=== PATIENT | female | born 1960 | race African-American/Black ===

== ENCOUNTER 2020-05-03 18:22 | Emergency (ER) | payer OTHER ==
[2020-05-03 18:26] VITALS: BP 133/61; PULSE 69; TEMP 97.1; BMI 33.2
[2020-05-03] MEDS ORDERED: DIPHTH,PERTUSS(ACELL),TET 0.5 ML DISP.SYRIN IM ONE ×2 (18:41→18:43)
[2020-05-03] MEDS ORDERED: IBUPROFEN 600 MG TABLET (FP) PO ONE ×2 (18:41→18:43)
--- NOTE | 2020-05-03 18:47 | PDOC ---
History of Present Illness - General Chief Complaint: Wound Stated Complaint: FINGER LACERATION Time Seen by Provider: 05/03/20 18:28 History Source: Patient Exam Limitations: No Limitations - History of Present Illness Initial Comments: 05/03/20 18:42 HISTORY OF PRESENT ILLNESS: 59-year-old woman who presents emergency department for evaluation of pain to left thumb status post laceration which occurred 4 days ago. Patient reports she was opening a can of corn beef when she cut herself on the exposed sharp edges of the lid. Patient has been applying Betadine and hydrogen peroxide to her wound since injury happened and is now concerned that she still has pain 4 days after the initial injury despite not taking any medication. Patient is unsure of her last tetanus shot. No recent travel or sick contacts. PAST MEDICAL HISTORY: Denies past medical history SURGICAL HISTORY: Denies ALLERGIES: No known drug allergies REVIEW OF SYSTEMS General/Constitutional: Denies fever or chills. Denies weakness, weight change. HEENT: Denies change in vision. Denies ear pain or discharge. Denies sore throat. Cardiovascular: Denies chest pain or shortness of breath. Respiratory: Denies cough, wheezing, or hemoptysis. Gastrointestinal: Denies nausea, vomiting, diarrhea or constipation. Denies rectal bleeding. Genitourinary: Denies dysuria, frequency, or change in urination. Musculoskeletal: Denies joint or muscle swelling or pain. Denies neck or back pain. Skin and breasts: See HPI Neurologic: Denies headache, vertigo, loss of consciousness, or loss of sensation. Psychiatric: Denies depression or anxiety. Endocrine: Denies increased thirst. Denies abnormal weight change. Hematologic/Lymphatic: Denies anemia, easy bleeding, or history of blood clots. Allergic/Immunologic: Denies hives or skin allergy. Denies latex allergy. PHYSICAL EXAM General Appearance: Well-appearing, appropriately dressed. No apparent distress, no intoxication. Musculoskeletal/Extremities: Normal inspection. FROM of all extremities, normal capillary refill. Pelvis Stable. No CVA tenderness. No tenderness to extremities, pedal edema, swelling, erythema or deformity. Neurovascularly intact. Integumentary: Approximate 1.5 cm irregular laceration present to the volar aspect of the left thumb near the DIP. Wound edges approximated. No erythema, swelling, discharge or drainage present from the wound. No lymphangitis noted. Past History - Medical History Allergies/Adverse Reactions: Allergies Allergy/AdvReac Type Severity Reaction Status Date / Time No Known Allergies Allergy Verified 05/03/20 18:25 Home Medications: Ambulatory Orders No Home Medications 03/19/12 Anemia: No Asthma: No Cancer: No Cardiac Disorders: No CVA: No COPD: No CHF: No Dementia: No Diabetes: No GI Disorders: No Disorders: No HTN: No Hypercholesterolemia: No Liver Disease: No Seizures: No Thyroid Disease: No - Surgical History Abdominal Surgery: No Appendectomy: No Cardiac Surgery: No Cholecystectomy: No Lung Surgery: No Neurologic Surgery: No Orthopedic Surgery: No - Psycho-Social/Smoking History Smoking History: Never smoked Have you smoked in the past 12 months: No Information on smoking cessation initiated: No - Substance Abuse Hx (Audit-C & DAST Scrn) How often the patient has a drink containing alcohol: Never Score: In Men: 4 or > Positive; In Women: 3 or > Positive: 0 Screen Result (Pos requires Nsg. Audit-10AR): Negative In the last yr the pt used illegal drug/Rx for NonMed reason: No Score: Yes response is considered Positive: 0 Screen Result (Positive result requires Nsg. DAST-10): Negative *Physical Exam - Vital Signs Last Vital Signs Temp Pulse Resp BP Pulse Ox 97.1 F L 69 17 133/61 99 05/03/20 18:22 05/03/20 18:22 05/03/20 18:22 05/03/20 18:22 05/03/20 18:22 Medical Decision Making - Medical Decision Making 05/03/20 18:44 A/P: 59-year-old woman with laceration to left thumb which occurred 4 days ago No signs or symptoms of infection present. As injury occurred greater than 12 hours ago wound to be left open to heal without closure Boostrix Motrin 600 mg orally now Discharge home to follow-up with PMD Portions of this note have been documented using voice recognition software. As a result, errors may occur in the middleware developer process. Effort has been made to correct all grammatical and middleware developer error, but some may have been missed which may produce sporadic inaccurate middleware developer or nonsensical phrases. Discharge - Discharge Information Problems reviewed: Yes Clinical Impression/Diagnosis: Thumb laceration Qualifiers: Encounter type: initial encounter Damage to nail status: without damage Foreign body presence: without foreign body Laterality: left Qualified Code(s): S61.012A - Laceration without foreign body of left thumb without damage to nail, initial encounter Condition: Stable Disposition: HOME - Admission No - Follow up/Referral Referrals: Justice Souza MD [Primary Care Provider] - - Patient Discharge Instructions Additional Instructions: Wash hands with soap and water twice a day and apply antibiotic ointment to wounds after thoroughly drying. Take Tylenol or Motrin as needed for pain. Follow banquet bartender's instructions for appropriate dosage. Emergency department visit is incomplete to you follow-up with your primary doctor. Return to the emergency department for severe pain, discharge or drainage from the wounds, swelling or redness around the wounds or red streaks extending up your hand and arm. Thank you very much for choosing us to provide your emergent healthcare needs. - Post Discharge Activity Work/Back to School Note: Back to Work
== END 2020-05-03 18:50 | disposition home or self-care (01) ==
LOC: JERFT 18:22
PROC: 3E0234Z Introduction of Serum, Toxoid and Vaccine into Muscle, Percutaneous Approach (ICD-10-PCS; principal; 2020-05-03)
DX: S61.012A Laceration without foreign body of left thumb without damage to nail, initial encounter (principal)
CPT/HCPCS: 90715; 99284-25

== ENCOUNTER 2020-12-04 04:39 | Day surgery (SDC) | payer OTHER ==
[2020-12-01 16:06] VITALS: BMI 32.4
[~2020-12-04 04:39] MED LIST: BUPIVACAINE HCL/PF 0.5% (5 MG/ML) 30 ML VIAL IJ ONE; ceFAZolin SODIUM 1 GM VIAL IVPB ONE
[2020-12-04] MEDS ORDERED: PROPOFOL 20 ML ONE (07:46)
[2020-12-04] MEDS ORDERED: ROCURONIUM BROMIDE 50 MG/5 ML SYRINGE ONE ×2 (07:46→08:42)
[2020-12-04] MEDS ORDERED: LIDOCAINE HCL/PF 2% SDV 5ML VIAL ONE (07:46)
[2020-12-04] MEDS ORDERED: MIDAZOLAM HCL 2 MG/2 ML SINGLE DOSE VIAL ONE (07:46)
[2020-12-04] MEDS ORDERED: SUCCINYLCHOLINE CHLORIDE 200 MG/10 ML SYRINGE ONE (07:48)
[2020-12-04] MEDS ORDERED: ceFAZolin SODIUM 1 GM VIAL IVPB ONE (08:15)
[2020-12-04] MEDS ORDERED: KETOROLAC TROMETHAMINE 30 MG/1 ML VIAL ONE (08:22)
[2020-12-04] MEDS ORDERED: ceFAZolin SODIUM 1 GM VIAL ONE (08:22)
[2020-12-04] MEDS ORDERED: DEXAMETHASONE SOD PHOSPHATE 4 MG/1 ML VIAL ONE (08:22)
[2020-12-04] MEDS ORDERED: BUPIVACAINE HCL/PF 0.5% (5 MG/ML) 30 ML VIAL IJ ONE (08:41)
[2020-12-04] MEDS ORDERED: ACETAMINOPHEN INJECTION 100 ML IVPB ONE (09:17)
[2020-12-04] MEDS ORDERED: GLYCOPYRROLATE 0.2 MG/1 ML VIAL ONE (09:21)
[2020-12-04] MEDS ORDERED: NEOSTIGMINE METHYLSULFATE 0.5 MG/ML - 10 ML MDV ONE (09:21)
[2020-12-04] MEDS ORDERED: ONDANSETRON 4 MG/2 ML VIAL IVPUSH PRN (10:06)
[2020-12-04] MEDS ORDERED: LACTATED RINGERS SOLUTION 1,000 ML IV SCH (10:15)
[2020-12-04] MEDS ORDERED: ALBUTEROL SO4 0.083% IH SOL 2.5 MG/3 ML VIAL.NEB. NEB ONE ×2 (12:45→15:20)
[2020-12-04] MEDS ORDERED: ACETAMINOPHEN 325 MG TABLET (FP) ONE (14:43)
[2020-12-04] MEDS ORDERED: ACETAMINOPHEN 1000 MG/100 ML VIAL (NON FORMULARY) IVPB ONE (15:19)
[2020-12-04] MEDS ORDERED: ACETAMINOPHEN 325 MG TABLET (FP) PO PRN (16:25)
[2020-12-04] MEDS: oxyCODONE HCL 5 MG TABLET PO PRN (22:12)
[2020-12-05] MEDS: oxyCODONE HCL 5 MG TABLET PO PRN (06:08)
[2020-12-05 12:44] VITALS: BP 115/68; PULSE 58; TEMP 98.3
== END 2020-12-05 13:56 | disposition home or self-care (01) ==
LOC: JASUSAT 04:39 → JASU-SURG 04:39 → J5S 21:30 → JASUSAT 12-05 13:56
PROVIDERS: ATTEND Surgery
PROC: 0FT44ZZ Resection of Gallbladder, Percutaneous Endoscopic Approach (ICD-10-PCS; principal; 2020-12-04 08:00)
DX: K80.10 Calculus of gallbladder with chronic cholecystitis without obstruction (principal)
CPT/HCPCS: 71045-TC-FY; 88304-TC; 94010; J0131

== ENCOUNTER 2022-02-28 17:49 | Emergency (ER) | payer OTHER ==
[2022-02-28 17:59] VITALS: BP 138/82; PULSE 81; TEMP 98.6; BMI 33.5
[2022-02-28] MEDS ORDERED: ACETAMINOPHEN 500 MG TABLET (FP) PO ONE (18:16)
[2022-02-28] MEDS ORDERED: METOCLOPRAMIDE HCL 10 MG TABLET (FP) PO ONE ×2 (18:16→18:18)
[2022-02-28] MEDS ORDERED: ACETAMINOPHEN 500 MG TABLET (FP) ONE (18:18)
== END 2022-02-28 20:01 | disposition home or self-care (01) ==
LOC: JERFT 17:49
DX: G44.209 Tension-type headache, unspecified, not intractable (principal)
CPT/HCPCS: 99283-25

== ENCOUNTER 2023-11-29 04:42 | Day surgery (SDC) | payer OTHER ==
[2023-11-27 17:05] VITALS: BMI 33.4
[~2023-11-29 04:42] MED LIST changes: +ACETAMINOPHEN 325 MG TABLET (FP) PO PRN; -BUPIVACAINE HCL/PF 0.5% (5 MG/ML) 30 ML VIAL IJ ONE; -ceFAZolin SODIUM 1 GM VIAL IVPB ONE
[2023-11-29] MEDS ORDERED: BSS (NA/CA/MG/K) BALANCED SALT SOLUTION OPHTH SOLN 15 ML BOTTLE ONE (07:21)
[2023-11-29] MEDS ORDERED: POVIDONE-IODINE 5% OPHTHALMIC PREP 30 ML SOLUTION ONE (07:21)
[2023-11-29] MEDS ORDERED: LIDOCAINE HCL/PF 1% SDV 5ML VIAL ONE (07:21)
[2023-11-29] MEDS ORDERED: TETRACAINE 0.5% OPHTH SOLN 2 ML BOTTLE ONE (07:21)
[2023-11-29] MEDS ORDERED: TRYPAN BLUE 0.5 ML DISP.SYRIN ONE (07:22)
[2023-11-29] MEDS ORDERED: TROPICAMIDE 1% OPHTH SOLN 15 ML BOTTLE ONE (08:02)
[2023-11-29] MEDS ORDERED: PHENYLEPHRINE 2.5% OPTHALMIC DROP 2ML BOTTLE ONE (08:02)
[2023-11-29] MEDS ORDERED: CYCLOPENTOLATE HCL 1% OPHTH SOLN 2 ML BOTTLE ONE (08:02)
[2023-11-29] MEDS ORDERED: OFLOXACIN 0.3% OPHTHALMIC SOLUTION 5 ML BOTTLE ONE (08:02)
[2023-11-29] MEDS ORDERED: KETOROLAC TROMETHAMINE 0.5% EYE DROP 1 DROP DROPS ONE (08:02)
[2023-11-29] MEDS: TROPICAMIDE 1% OPHTH SOLN 15 ML BOTTLE OP SCH (08:13)
[2023-11-29] MEDS: KETOROLAC TROMETHAMINE 0.5% EYE DROP 1 DROP DROPS OP SCH (08:13)
[2023-11-29] MEDS: PHENYLEPHRINE 2.5% OPHTH SOLN 15 ML BOTTLE OP SCH (08:13)
[2023-11-29] MEDS: CYCLOPENTOLATE HCL 1% OPHTH SOLN 2 ML BOTTLE OP SCH (08:13)
[2023-11-29] MEDS: OFLOXACIN 0.3% OPHTHALMIC SOLUTION 5 ML BOTTLE OP SCH (08:14)
[2023-11-29 08:15] VITALS: RESP 18
[2023-11-29] MEDS ORDERED: MIDAZOLAM HCL 2 MG/2 ML SINGLE DOSE VIAL ONE (09:27)
[2023-11-29] MEDS ORDERED: ONDANSETRON 4 MG/2 ML VIAL ONE (09:27)
[2023-11-29] MEDS: TETRACAINE 0.5% OPHTH SOLN 2 ML BOTTLE OD ONE (09:49)
[2023-11-29] MEDS: POVIDONE-IODINE 5% OPHTHALMIC PREP 30 ML SOLUTION OD ONE (09:50)
[2023-11-29] MEDS: LIDOCAINE HCL 1% PRESERVATIVE FREE - 30ML VIAL IJ ONE ×2 (09:58)
[2023-11-29] MEDS: BSS (NA/CA/MG/K) BALANCED SALT SOLUTION OPHTH SOLN 15 ML BOTTLE OD ONE ×2 (09:59)
[2023-11-29] MEDS: CHONDROITIN SU A/HYALUR SOD 1 KIT IO ONE ×2 (10:01)
[2023-11-29] MEDS: EPINEPHrine/PF 1 MG/1 ML (1:1,000) AMPULE SQ ONE ×2 (10:05)
[2023-11-29 11:18] VITALS: BP 115/65; PULSE 70; TEMP 98.4
== END 2023-11-29 11:18 | disposition home or self-care (01) ==
LOC: JASU-SURG 04:42
PROVIDERS: ATTEND Ophthalmology
PROC: 08RJ3JZ Replacement of Right Lens with Synthetic Substitute, Percutaneous Approach (ICD-10-PCS; principal; 2023-11-29 10:00)
DX: H26.9 Unspecified cataract (principal)
CPT/HCPCS: V2632

== ENCOUNTER 2023-12-13 04:18 | Day surgery (SDC) | payer OTHER ==
[2023-12-12 09:48] VITALS: BMI 32.8
[~2023-12-13 04:18] MED LIST changes: +CYCLOPENTOLATE HCL 1% OPHTH SOLN 2 ML BOTTLE OP SCH; +KETOROLAC TROMETHAMINE 0.5% EYE DROP 1 DROP DROPS OP SCH; +OFLOXACIN 0.3% OPHTHALMIC SOLUTION 5 ML BOTTLE OP SCH; +PHENYLEPHRINE 2.5% OPHTH SOLN 15 ML BOTTLE OP SCH; +TROPICAMIDE 1% OPHTH SOLN 15 ML BOTTLE OP SCH
[2023-12-13] MEDS ORDERED: TROPICAMIDE 1% OPHTH SOLN 15 ML BOTTLE ONE (06:28)
[2023-12-13] MEDS ORDERED: KETOROLAC TROMETHAMINE 0.5% EYE DROP 1 DROP DROPS ONE (06:28)
[2023-12-13] MEDS ORDERED: PHENYLEPHRINE 2.5% OPTHALMIC DROP 2ML BOTTLE ONE (06:28)
[2023-12-13] MEDS ORDERED: OFLOXACIN 0.3% OPHTHALMIC SOLUTION 5 ML BOTTLE ONE (06:29)
[2023-12-13] MEDS: CYCLOPENTOLATE HCL 1% OPHTH SOLN 2 ML BOTTLE OS ONE ×3 (06:46→07:05)
[2023-12-13] MEDS: KETOROLAC TROMETHAMINE 0.5% EYE DROP 1 DROP DROPS OS ONE ×3 (06:47→07:05)
[2023-12-13] MEDS: OFLOXACIN 0.3% OPHTHALMIC SOLUTION 5 ML BOTTLE OS ONE ×3 (06:48→07:05)
[2023-12-13] MEDS: PHENYLEPHRINE 2.5% OPHTH SOLN 15 ML BOTTLE OS ONE ×3 (06:48→07:05)
[2023-12-13] MEDS: TROPICAMIDE 1% OPHTH SOLN 15 ML BOTTLE OS ONE ×3 (06:48→07:05)
[2023-12-13] MEDS ORDERED: LIDOCAINE HCL/PF 1% SDV 5ML VIAL ONE (07:13)
[2023-12-13] MEDS ORDERED: EPINEPHrine/PF 1 MG/1 ML (1:1,000) AMPULE ONE (07:13)
[2023-12-13] MEDS ORDERED: VANCOMYCIN 500 MG VIAL (RESTRICTED TO ID ONLY) ONE (07:14)
[2023-12-13] MEDS ORDERED: TETRACAINE 0.5% OPHTH SOLN 2 ML BOTTLE ONE (07:14)
[2023-12-13] MEDS ORDERED: POVIDONE-IODINE 5% OPHTHALMIC PREP 30 ML SOLUTION ONE (07:14)
[2023-12-13] MEDS ORDERED: MIDAZOLAM HCL 2 MG/2 ML SINGLE DOSE VIAL ONE (08:02)
[2023-12-13] MEDS: TETRACAINE 0.5% OPHTH SOLN 2 ML BOTTLE OS ONE ×2 (08:07)
[2023-12-13] MEDS: POVIDONE-IODINE 5% OPHTHALMIC PREP 30 ML SOLUTION OS ONE ×2 (08:09)
[2023-12-13] MEDS: LIDOCAINE HCL 1% PRESERVATIVE FREE - 30ML VIAL INF ONE ×2 (08:14)
[2023-12-13] MEDS: BSS (NA/CA/MG/K) BALANCED SALT SOLUTION OPHTH SOLN 15 ML BOTTLE OS ONE ×2 (08:18)
[2023-12-13] MEDS: CHONDROITIN SU A/HYALUR SOD 1 KIT IO ONE ×2 (08:21)
[2023-12-13] MEDS: EPINEPHrine/PF 1 MG/1 ML (1:1,000) AMPULE SQ ONE ×2 (08:27)
[2023-12-13] MEDS: VANCOMYCIN 500 MG VIAL (RESTRICTED TO ID ONLY) IVPB ONE ×2 (08:34)
[2023-12-13 10:07] VITALS: RESP 20; TEMP 97.3
[2023-12-13 10:10] VITALS: BP 118/74; PULSE 67
== END 2023-12-13 09:38 | disposition home or self-care (01) ==
LOC: JASU-SURG 04:18
PROVIDERS: ATTEND Ophthalmology
PROC: 08RK3JZ Replacement of Left Lens with Synthetic Substitute, Percutaneous Approach (ICD-10-PCS; principal; 2023-12-13 08:00)
DX: H26.9 Unspecified cataract (principal)
CPT/HCPCS: V2632